=== PATIENT | female | born 1945 | race Caucasian/White ===

== ENCOUNTER 2022-06-02 05:51 | Inpatient (IN) | payer MEDICARE, SELFPAY ==
[2022-06-02] VITALS (213 sets, daily range): BP systolic 58–134; BP diastolic 21–91; PULSE 47–188; RESP 11–41; TEMP 36.9–37.7; O2SAT 92–99
--- NOTE | 2022-06-02 | DI.US_ITS ---
APPROVED REPORT EXAM: Comprehensive 2D, Doppler, and color-flow Echocardiogram Patient Location: In-Patient Room/Bed: 220 [employer] Tech: Angi Jacob RDCS (AE) Indications: A Fib with RVR, New onset Other Information Study Quality: Fair. Technically limited study due to body habitus, inability to position patient exa m done bedside supine. Conclusion Normal left ventricular wall thickness and chamber size. Estimated ejection fraction is 55%. Wall m otion appears normal Normal right ventricular size and systolic function Both atria are mildly dilated There are no structural valvular abnormalities Trace mitral regurgitation Trace to mild tricuspid regurgitation. Estimated right ventricular systolic pressure is 26 mmHg Patient was in atrial fibrillation with an uncontrolled ventricular response throughout, significant [id number] variation Wall motion Left Ventricle The left ventricle is normal size. The left ventricular systolic function is normal. The left ventric ular ejection fraction is within the normal range. There is normal left ventricular wall thickness. T here is normal LV segmental wall motion. There is no ventricular septal defect visualized. LVEF is 55 %. Right Ventricle Right ventricle is grossly normal in size. Right ventricular systolic function is grossly normal. The RVSP is 26.1mmHg. Atria Left atrium is mildly dilated. Right atrium is mildly dilated. The interatrial septum is intact with no evidence for an atrial septal defect. Aortic Valve The aortic valve is normal in structure. Aortic valve is trileaflet. There is no aortic valvular sten osis. No aortic regurgitation is present. Mitral Valve The mitral valve is normal in structure. No evidence of mitral valve stenosis. Trace mitral regurgita tion. Tricuspid Valve The tricuspid valve is normal in structure. There is no tricuspid valve stenosis. Mild to moderate t ricuspid regurgitation. Pulmonic Valve The pulmonary valve is normal in structure. There is no pulmonic valvular stenosis. There is no pulm onic valvular regurgitation. Great Vessels The aortic root is normal in size. Ascending aorta is not well visualized. Aortic arch is normal in c aliber. The IVC collapses <50% with inspiration. Pericardium There is no pericardial effusion. 2D Dimensions IVSD d PLAX 0.89 cm F: 0.6-1.0 LV Vol A2C d MOD 81.1 mL LVPW d PLAX 0.89 cm F: 0.6 - 1.0 LV Vol A4C d MOD 79.5 mL LVID d PLAX 4.37 cm F: 3.8 - 5.2 LA vol/ BSA A2C s A-L 33.2 mL/m2 LVDs 3.10 cm F: 2.2 - 3.5 LA vol/ BSA A4C s A-L 40.6 mL/m2 Ao Root d 3.19 cm F: 2.7 - 3.3 LA Vol/ BSA Biplane s A-L 37.8 mL/m2 RA Area A4C 13.60 cm2 LA Area A4C s MOD 22.93 cm2 RA Vol/ BSA A4C s A-L 18.0 mL/m2 LA Area A2C s MOD 21.34 cm2 LV EF Teichholz 55.0 % LV EF A4C MOD 51.4 % LVEF (Greer's) 53.92 % F: 54 - 74 LV EF A2C MOD 55.5 % LV Volume 62.68 mL F: 46 - 106 LV EF Biplane MOD 53.9 % LV Volume Index 32.81 mL/m2 F: 29 - 61 SV 44.34 mL LV Vol Biplane MOD 82.2 mL SV Index 23.25 mL/m2 FS 28.35 % M-Mode TAPSE 1.57 cm (M/F) >1.7 LV Diastology MV E' medial 0.099 (>0.07 m/s) MV E Vmax 0.80 (0.4-1.3 m/s) LV E/e MED 8.05 (<14) MV E' lateral 0.114 (>0.1 m/s) LV E/e LAT 6.95 (<14) MV E/E' medial 8.05 MV E/E' lateral 6.95 Aortic Valve LVOT Area 2.84 cm2 AoV Area Vmax 2.34 cm2 LVOT Vmax 0.97 m/s AoV Area/ BSA (Vmax) 1.23 cm2/m2 LVOT Mean Ash. 0.60 m/s MARLEY Mean Ash. 2.12 cm2 LVOT Peak Grad 3.8 mmHg MARLEY Mean Ash. Index 1.11 cm2/m2 LVOT Mean Grad 1.8 mmHg LVOT VTI 0.167 m LVOT Diam s 1.90 cm AoV Vmax 1.18 m/s Velocity Ratio 0.82 AoV Mean Ash. 0.81 m/s AoV Peak Grad 5.6 mmHg LVOT SV 47.41 mL AoV Mean Grad 3.0 mmHg AoV VTI 0.184 m AoV Area VTI 2.58 cm2 AoV Area/ BSA (VTI) 1.35 cm/m2 Mitral Valve MV DT 143 (160-240 msec) MV PHT 41 msec MV Area PHT 5.32 cm2 MV VTI 0.171 m MV Area VTI 2.76 (4.0-6.0 cm2) Pulmonary Valve PV Vmax 0.81 (0.5-1.5 m/s) RVOT Peak Gr. 1.19 mmHg PV Peak Grad 2.6 mmHg RVOT Mean Gr. 0.55 mmHg PV Mean Grad 1.4 mmHg RVOT VTI 0.092 m PV VTI 0.114 m RVOT Vmax 0.54 m/s Tricuspid Valve TR Peak Grad 18.0 mmHg TR Vmax 2.13 m/s RA Pressure 8.00 mmHg RVSP (TR) 26.1 mmHg
--- NOTE | 2022-06-02 05:45 | RT.EKG_ITS ---
APPROVED REPORT Exam: Resting ECG Reason for Exam: chest pain Patient Location: E HR:173 bpm ECG Measurements Heart Rate [address] 119 P -11 QRSd 147 QRS 210 QT 320 T -3 QTc 542 Conclusion Extreme tachycardia with wide complex, no further rhythm analysis attempted. Wide complex in V1, narrow complex remaider of leads. Irregular. ST depression inferior/lateral leads . No STEMI. I have reviewed and interpreted ECG and agree with software generated interpretation.
--- NOTE | 2022-06-02 05:59 | ED.GENADUL_ITS ---
Discharge Plan Discharge Details Chief Complaint: Palpitatns Primary Care Provider: Tova Cuello ED Provider: Everardo Brunner Home Meds and New Rx's Prescriptions: No Action rosuvastatin [Crestor] 20 mg Tablet 20 mg 1XD omeprazole 20 mg Capsule,Delayed Release(Dr/Ec) 20 mg PO DAILY Medical Decision Making 0610 -- 76-year-old female with history of hyperlipidemia presents for palpitati ons and dizziness since 3 AM. Heart rate 150s to 180s, wide-complex, irregular. Patient is awake and alert and talking and appears in no acute distress. Her blood pressure is stable at 132/71. She has normal oxygen saturation and appears nontoxic. [facility] cardiology paged. Patient attached to ZOLL, pads placed. Screening labs obtained. We will give a dose of amiodarone IV. 0630 --heart rate improved to as low as 110s after amiodarone. Blood pressure briefly hypotensive but then improved. Patient remained awake and alert, laughing and joking at times. Repeat EKG read as atrial flutter but appears potentially more consistent with A-fib, irregular, no P waves but no flutter waves. Case discussed with [facility] cardiology who agree may be atrial fibrillation and recommend 25 mg metoprolol tartrate. And give another dose of metoprolol if rate remains elevated. Recommend start anticoagulation if appropriate at some point. Recommend 325 aspirin loading dose. Pending labs and if elevated troponin, can treat with heparin. 0745 --labs reviewed. Potassium 3.4. Troponin and magnesium within normal limits. Chest x-ray no acute disease. Repeat EKG after metoprolol p.o. x1 notes a rate of 122, irregular, no P waves visible, wide complex in V1, remainder of leads narrow complex, no STEMI. Heart rate had remained into the 110s to 120s, will give another dose of metopro lol 25 p.o. We will page [facility] cardiology for additional recommendations. Patient remains awake and alert. Case endorsed to Dr. Brunner to follow-up with [facility] cardiology regarding recommendations. HR 100s. BP 98/65. Medical Records Medical records reviewed: Yes I reviewed the patient's medical records. Imaging Data Radiologic Study: Radiologist's impression: XR Chest Exam date and time: 06/02/2022 6:23 AM Age: 76 years old Clinical indication: Prior surgery; Surgery date: 6+ months; Surgery type: L shoulder surgery; Patient HX: Dizziness, tachycardia, R/O acute disease TECHNIQUE: Imaging protocol: Radiologic exam of the chest. Views: 1 view. COMPARISON: No relevant prior studies available. FINDINGS: Limitations: Two defibrillator pads and multiple cardiac leads project over the chest, partially obscuring the underlying lungs. Lungs: The lungs are clear and well aerated bilaterally. There is no consolidation, infiltrate, or pulmonary edema. The pulmonary vasculature is normal in caliber. Pleural spaces: Unremarkable. No pleural effusion or pneumothorax. Heart/Mediastinum: Heart size is normal. The thoracic aorta is tortuous, with atherosclerotic mural calcification of the aortic arch. The rob are not enlarged. Bones/joints: Degenerative changes. Left total shoulder arthroplasty. No acute osseous abnormality. IMPRESSION: No acute cardiopulmonary abnormality. Lab Data Lab results reviewed: Yes I reviewed the patient's lab results. Labs: Laboratory Tests Range/Units 06/02/22 06/02/22 06:00 06:00 WBC (4.4-10.8) 10^3/uL 5.89 RBC (3.93-5.22) 10^6/uL 4.16 Hgb (11.2-15.7) g/dL 12.9 Hct (36.0-46.0) % 39.2 MCV (80-95) fL 94 MCH (27.0-33.0) pg 31.0 MCHC (32.0-36.0) % 32.9 RDW (11.7-14.6) % 12.8 Plt Count (130-400) 10^3/uL 242 MPV (8.0-11.0) fL 10.3 Immature Gran % 0.3 Neutrophils % 59.7 Lymphocytes % 26.8 Monocytes % 10.0 Eosinophils % 2.7 Basophils % 0.5 Nucleated RBC % (0.0-0.3) % 0.0 Absolute Neutrophils (1.2-6.7) 10^3/uL 3.51 Absolute Lymphocytes (1.2-3.4) 10^3/uL 1.58 Absolute Monocytes (0.1-0.8) 10^3/uL 0.59 Absolute Eosinophils (0.0-0.7) 10^3/uL 0.16 Absolute Basophils (0.0-0.2) 10^3/uL 0.03 Sodium (136-145) mmol/L 144 Potassium (3.5-5.1) mmol/L 3.4 L Chloride (98-107) mmol/L 106 Carbon Dioxide (21.0-32.0) mmol/L 25.5 Anion Gap (3-11) mmol/L 12.5 H BUN (7-18) mg/dL 13 Creatinine (0.55-1.02) mg/dL 0.9 Est GFR (CKD-EPI 2020) (mL/min/1.73m2) 65.44 Glucose (74-106) mg/dL 109 H Calcium (8.5-10.1) mg/dL 9.2 Magnesium (1.8-2.4) mg/dL 1.9 Total Bilirubin (0.2-1.0) mg/dL 0.6 AST (15-37) U/L 25 ALT (14-59) U/L 21 Alkaline Phosphatase (46-116) U/L 71 Troponin I (<or=60) ng/L < 50 Total Protein (6.4-8.2) g/dL 7.0 Albumin (3.4-5.0) g/dL 3.7 ECG Data Attestation: I personally reviewed and interpreted this ECG (s) as follows: Interpretation: #1 -- rate of 173, irregular, wide complex in V1 and V2, narrow complex in remainder of leads, ST depressions throughout. No STEMI. #2 -- Rate of 119, irregular, wide-complex in V1, narrow complex remainder of leads, ST depression noted in anterior lateral leads, no STEMI. #3 -- Rate of 122, irregular, no P waves visible, wide complex in V1, remainder of leads narrow complex, no STEMI. May be A-fib. HPI General Mode of arrival: ambulatory . Date/Time Provider Initiated Documentation: 06/02/22 05:52 . Limitations to Documentation: no limitations . Information obtained by: patient . HPI Narrative: Pt is a 76yo F with a history of hyperlipidemia who presents to the ED with a complaint of palpitations since 3 AM. Patient states she is visiting from [facility] and staying with her son and was sleeping when around 3 AM the cat jumped on the bed and awoke her and she became nervous because she is allergic to cats. She states shortly after this she felt rapid heart rate and dizziness. She denies any chest pain or shortness of breath. She states she had several episodes of vomiting and diarrhea 4 nights ago that has since resolved and she has been eating normally and now has normal stools. She denies any new medications, alcohol or drug use. She states she drinks a few iced teas daily but otherwise denies any other caffeine use. She denies any history of an arrhythmia. Related Data Home Medications Medication Instructions Recorded Confirmed omeprazole 20 mg capsule,delayed 20 mg PO DAILY 06/02/22 06/02/22 release rosuvastatin 20 mg tablet (Crestor) 20 mg 1XD 06/02/22 06/02/22 Allergies Allergy/AdvReac Type Severity Reaction Status Date / Time iodine AdvReac Mild Other (See Unverified 06/02/22 06:14 Comment) General Stated Complaint: Palpitatns PETER: 3 Review of Systems All systems reviewed & are unremarkable except as noted in HPI and below Constitutional Constitutional: Reports as per HPI, Denies chills and Denies fever(s) Eyes Eyes: Denies blurry vision ENT Ears, Nose, Mouth, and Throat: Reports dizziness, Denies sore throat and Denies throat swelling Cardiovascular Cardiovascular: Denies chest pain, Reports palpitations and Denies dyspnea Respiratory Respiratory: Denies cough and Denies dyspnea Gastrointestinal Gastrointestinal: Denies abdominal pain, Denies diarrhea and Denies vomiting Genitourinary Genitourinary: Denies hematuria and Denies dysuria Musculoskeletal Musculoskeletal: Denies back pain and Denies numbness Integumentary/Breasts Skin/Breast: Denies lesions and Denies rash Neurologic Neurologic: Reports dizziness, Denies localized weakness and Denies numbness Endocrine Endocrine: Reports palpitations Allergic/Immunologic Allergic/Immunologic: Denies throat swelling [facility] Medical History (Updated 06/02/22 @ 06:16 by Elizabeth Gonzalez DO) Cervical cancer Hx of hyperlipidemia Surgical History (Updated 06/02/22 @ 06:16 by Elizabeth Gonzalez DO) H/O shoulder surgery History of hip replacement History of hysterectomy Social History Smoking/Tobacco Use Status: Never Smoking risk assessment performed?: Yes Alcohol Intake: never Drug use: Never Substance use type: does not use Exam Const General: cooperative and no acute distress Orientation: alert, awake and oriented x3 HENMT Head: normal to inspection Face and sinus: normal facial exam Eyes General: appearance normal, both eyes and all related structures Pupils: PERRL EOM: EOM intact bilaterally Neck Neck: normal visual inspection and No submandibular swelling Lymphatic: no lymphadenopathy noted Chest Chest: normal inspection of the chest and no tenderness Resp Effort & Inspection: normal respiratory effort and able to speak in complete sentences Auscultation: clear to auscultation bilaterally Cardio Rate: tachycardic Rhythm: abnormal rhythm irregularly irregular GI Inspection: normal to inspection Palpation: soft, not firm, not rigid and nontender Auscultation: normal bowel sounds Back/Spine/Pelvis Thoracic/Lumbar Spine: thoracic and lumbar spine normal to inspection Pelvis: no pain with anterior-posterior compression Skin General skin exam: no rashes or lesions noted Neuro General: patient alert, patient awake and patient oriented x3 Cognition: normal cognition Speech: speech normal Motor: muscle tone normal throughout Sensory Exam: no sensory deficits noted Extrem General: normal to inspection, full ROM, capillary refill normal, no calf tenderness bilaterally and no edema Psych Appearance: grossly normal Mental Status: mental status grossly normal Speech and Movement: speech and movement normal Affect: normal affect Sign Out Sign Out Data: Sign Out Comment: Palpitations since 3 AM. Wide-complex arrhythmia on initial EKG, status post amiodarone IV x1 and metoprolol p.o. x 2. Rhythm now appearing more consistent with A-fib. Follow-up with [facility] cardiology regarding recommendations. Last updated by Elizabeth Gonzalez DO at 06/02/22 07:45
--- NOTE | 2022-06-02 06:00 | DI.RAD_ITS ---
Exam(s) XR PORTABLE CHEST AP EXAM: XR PORTABLE CHEST AP CLINICAL HISTORY: dizziness, tachycardia, r/o acute disease TECHNIQUE: 2D digital imaging was performed. COMPARISON: No exams were available for comparison FINDINGS: Exam limited by multiple overlying leads. LUNGS: Clear. No pleural abnormality seen. HEART: Normal size. AORTA: Normal diameter. Mildly tortuous. Calcification. BONES: Prosthesis left shoulder. Degenerative changes right shoulder and spine. Soft tissues: Unremarkable. IMPRESSION: No acute findings. DATA REPOSITORY: RADIATION DOSE DELIVERED:
[2022-06-02 06:23] LABS: Abs Immature Grans 0.02 10^3/uL (0.0-0.06); Absolute Basophil Count 0.03 10^3/uL (0.0-0.2); Absolute Eosinophil Count 0.16 10^3/uL (0.0-0.7); Absolute Lymphocyte Count 1.58 10^3/uL (1.2-3.4); Absolute Monocyte Count 0.59 10^3/uL (0.1-0.8); Absolute Neutrophil Count 3.51 10^3/uL (1.2-6.7); Basophils % 0.5; Eosinophils % 2.7; HCT 39.2 % (36.0-46.0); HGB 12.9 g/dL (11.2-15.7); Immature Grans % 0.3; Lymphocytes % 26.8; MCHC 32.9 % (32.0-36.0); MCV 94 fL (80-95); MPV 10.3 fL (8.0-11.0); Neutrophils % 59.7; Platelet Count 242 10^3/uL (130-400); RBC 4.16 10^6/uL (3.93-5.22); RDW 12.8 % (11.7-14.6); RDW-SD 44.1 fL; WBC 5.89 10^3/uL (4.4-10.8)
[2022-06-02] MEDS: Amiodarone 150 MG/3 ML VIAL IVP (06:25)
--- NOTE | 2022-06-02 06:30 | RT.EKG_ITS ---
APPROVED REPORT Exam: Resting ECG Reason for Exam: rapid heart rate Patient Location: E HR:119 bpm ECG Measurements Heart Rate 119 AXIS OH [id number] P [id number] QRSd 161 QRS -53 QT 378 T 6 QTc 541 Conclusion Atrial flutter with predominant 2:1 AV block...A-rate 246, multiple Ps Right bundle branch block...QRSd>120, terminal axis(90,270). Wide complex in V1. Narrow complex in remainder of leads. ST depression inferior/lateral leads. No P waves visible. Irregular. May be Afib.
[2022-06-02] MEDS: Normal Saline 1,000 ML 150 ML IV ×3 (06:31→20:29)
[2022-06-02 06:44] LABS: ALT 21 U/L (14-59); AST 25 U/L (15-37); Albumin 3.7 g/dL (3.4-5.0); Alkaline Phosphatase 71 U/L (46-116); Anion Gap 12.5 mmol/L (3-11); BUN 13 mg/dL (7-18); Bilirubin, Total 0.6 mg/dL (0.2-1.0); CO2 25.5 mmol/L (21.0-32.0); CREATININE 0.9 mg/dL (0.55-1.02); Calcium 9.2 mg/dL (8.5-10.1); Chloride 106 mmol/L (98-107); Estimated GFR 65.44 (mL/min/1.73m2); Glucose 109 mg/dL (74-106); Magnesium 1.9 mg/dL (1.8-2.4); Potassium 3.4 mmol/L (3.5-5.1); Sodium 144 mmol/L (136-145); Troponin I < 50 ng/L (<or=60)
[2022-06-02] MEDS: Metoprolol 25 MG TAB PO ×4 (06:47→18:54)
[2022-06-02] MEDS: Aspirin 325 MG TAB PO (06:47)
--- NOTE | 2022-06-02 07:15 | RT.EKG_ITS ---
APPROVED REPORT Exam: Resting ECG Reason for Exam: rapid heart rate Patient Location: E HR:122 bpm ECG Measurements Heart Rate 122 AXIS FL 137 P -8 QRSd 155 QRS -41 QT 371 T -7 QTc 513 Conclusion Sinus tachycardia with irregular rate...V-rate 90-174, variation>10% Right bundle branch block...QRSd>120, terminal axis(90,270). Wide complex V1. Narrow complex remainder of leads. No P waves visible. Irregular. May be Afib.
[2022-06-02] MEDS: Normal Saline 1,000 ML 1000 ML IV (07:16)
--- NOTE | 2022-06-02 07:18 | DI.VRAD_ITS ---
PROCEDURE INFORMATION: Exam: XR Chest Exam date and time: 06/02/2022 6:23 AM Age: 76 years old Clinical indication: Prior surgery; Surgery date: 6+ months; Surgery type: L shoulder surgery; Patient HX: Dizziness, tachycardia, R/O acute disease TECHNIQUE: Imaging protocol: Radiologic exam of the chest. Views: 1 view. COMPARISON: No relevant prior studies available. FINDINGS: Limitations: Two defibrillator pads and multiple cardiac leads project over the chest, partially obscuring the underlying lungs. Lungs: The lungs are clear and well aerated bilaterally. There is no consolidation, infiltrate, or pulmonary edema. The pulmonary vasculature is normal in caliber. Pleural spaces: Unremarkable. No pleural effusion or pneumothorax. Heart/Mediastinum: Heart size is normal. The thoracic aorta is tortuous, with atherosclerotic mural calcification of the aortic arch. The rob are not enlarged. Bones/joints: Degenerative changes. Left total shoulder arthroplasty. No acute osseous abnormality. IMPRESSION: No acute cardiopulmonary abnormality. Dictated and Authenticated by: Jodee Madden MD. Ordering:IGNACIO Johnson MD
--- NOTE | 2022-06-02 08:33 | ED.PROG_ITS ---
Date of service: 06/02/22 Time of Service: 08:33 Medical Decision Making Care was signed out by Dr. Gonzalez, please see her documentation regarding initial ED presentation course. Plan at signout was to follow-up on recommendations from cardiology. Attempting to obtain outside hospital records including old EKG. Labs reviewed and mild-hypokalemia noted. Potassium 3.4. I will give potassium 20 meq orally. Patient was reassessed and heart rate now in the 100-120 bpm. Blood pressure 92/72 with a MAP of 76. Patient has received 1 L fluid bolus and is currently receiving normal saline infusion. She has been given amiodarone 150 mg bolus and metoprolol tartrate 50 mg by mouth. I spoke with cardiology at [facility] to update them as to course and request recommendations. Cardiology recommends continuing to monitor, obtain echocardiogram, consider metoprolol succinate 25 mg versus digoxin for ongoing outpatient management. -- I spoke with hospitalist, discussed ED presentation course, he will admit the patient. Care transition at time of admission. Lab Data Lab results reviewed: Yes I reviewed the patient's lab results. Labs: Laboratory Tests Range/Units 06/02/22 06/02/22 06:00 06:00 WBC (4.4-10.8) 10^3/uL 5.89 RBC (3.93-5.22) 10^6/uL 4.16 Hgb (11.2-15.7) g/dL 12.9 Hct (36.0-46.0) % 39.2 MCV (80-95) fL 94 MCH (27.0-33.0) pg 31.0 MCHC (32.0-36.0) % 32.9 RDW (11.7-14.6) % 12.8 Plt Count (130-400) 10^3/uL 242 MPV (8.0-11.0) fL 10.3 Immature Gran % 0.3 Neutrophils % 59.7 Lymphocytes % 26.8 Monocytes % 10.0 Eosinophils % 2.7 Basophils % 0.5 Nucleated RBC % (0.0-0.3) % 0.0 Absolute Neutrophils (1.2-6.7) 10^3/uL 3.51 Absolute Lymphocytes (1.2-3.4) 10^3/uL 1.58 Absolute Monocytes (0.1-0.8) 10^3/uL 0.59 Absolute Eosinophils (0.0-0.7) 10^3/uL 0.16 Absolute Basophils (0.0-0.2) 10^3/uL 0.03 Sodium (136-145) mmol/L 144 Potassium (3.5-5.1) mmol/L 3.4 L Chloride (98-107) mmol/L 106 Carbon Dioxide (21.0-32.0) mmol/L 25.5 Anion Gap (3-11) mmol/L 12.5 H BUN (7-18) mg/dL 13 Creatinine (0.55-1.02) mg/dL 0.9 Est GFR (CKD-EPI 2020) (mL/min/1.73m2) 65.44 Glucose (74-106) mg/dL 109 H Calcium (8.5-10.1) mg/dL 9.2 Magnesium (1.8-2.4) mg/dL 1.9 Total Bilirubin (0.2-1.0) mg/dL 0.6 AST (15-37) U/L 25 ALT (14-59) U/L 21 Alkaline Phosphatase (46-116) U/L 71 Troponin I (<or=60) ng/L < 50 Total Protein (6.4-8.2) g/dL 7.0 Albumin (3.4-5.0) g/dL 3.7 Sign Out Sign Out Data: Sign Out Comment: Palpitations since 3 AM. Wide-complex arrhythmia on initial EKG, status post amiodarone IV x1 and metoprolol p.o. x 2. Rhythm now appearing more consistent with A-fib. Follow-up with [facility] cardiology regarding recommendations. Last updated by Elizabeth Gonzalez DO at 06/02/22 07:45 Discharge Plan Disposition Patient Disposition: Admit to [facility] Condition: Serious Discharge Details Clinical Impression: Atrial fibrillation with RVR, Acute hypokalemia Admit Date/Time: 06/02/22 09:51 Admit Provider: Roque Melendrez Attending Provider: Roque Melendrez Primary Care Provider: Tova Cuello ED Provider: Everardo Brunner Discharge Data Discharge Date/Time-TO BE ENTERED AT DEPARTURE: 06/02/22 11:54
[2022-06-02] MEDS: Potassium Chloride 20 MEQ TABCR PO ×3 (09:21→21:31)
[2022-06-02 10:15] LABS: Source Nasal/Nares
[2022-06-02 10:56] LABS: COVID-19 PCR Negative (Negative)
[2022-06-02] MEDS: Apixaban 5 MG TAB PO ×2 (13:37→20:29)
--- NOTE | 2022-06-02 15:17 | W.CARDCONSUL ---
Date of service: 06/02/22 Time of Service: 15:18 Assessment and Plan Assessment and plan (1) Atrial fibrillation with RVR: Status: Acute Assessment and plan: Patient has atrial fibrillation. She has been appropriately started on anticoagulation with Eliquis. I would recommend continued efforts at rate control such as metoprolol tartrate 25 mg every 6 hours. This could be gradually uptitrated based on heart rate and blood pressure if necessary. I think over time heart rate will get better controlled. The patient wants to know if she can go home tomorrow and I think that depending on how she does overnight and whether a discharge regimen can be determined will affect that. If possible changing to long-acting metoprolol at discharge would be desirable. She should have referral to cardiology when she goes home to [place] for further care. Amiodarone should be avoided as the patient has not been chronically anticoagulated. History of Present Illness History of Present Illness Chief Complaint: Rapid heartbeat Narrative: This 76-year-old woman presented to the emergency room earlier today because of an elevated heart rate, noted to be as high as 150 on her Apple Watch. She could feel heart racing. She did not experience any shortness of breath chest discomfort dizziness or lightheadedness. In the emergency room she was found to have atrial fibrillation with a rapid rate. EKG showed a right bundle branch block. She has been treated with low doses of beta-blockers and also 1 dose of amiodarone with some degree of slowing of her heart rate. She also has been started on Eliquis. Currently the patient is in ICU and is not expressing any cardiac symptoms. heart rate is around 120. The patient does not have any past history of atrial fibrillation. Overall she is healthy. She takes Crestor for cholesterol and reports that she had a coronary artery calcium score which was elevated, result not specifically known. Her primary care provider ordered this test and recommended healthy diet and lifestyle choices. She has had stress testing in the past reportedly unremarkable. An echocardiogram was done today. Within the limits of the study her LV function appears normal. She has no significant valvular disease. Both atria are mildly dilated Review of Systems Cardiovascular Cardiovascular: Reports as per HPI, Denies chest pain, Reports rapid heart rate, Denies lightheadedness, Reports palpitations and Denies dyspnea Respiratory Respiratory: Denies dyspnea Endocrine Endocrine: Reports palpitations PFSH All Active Problems (Updated 06/02/22 @ 08:37 by Everardo Brunner MD) Atrial fibrillation with RVR (Acute) Acute hypokalemia (Acute) Medical History (Updated 06/02/22 @ 08:37 by Everardo Brunner MD) Cervical cancer Hx of hyperlipidemia Surgical History (Updated 06/02/22 @ 06:16 by Elizabeth Gonzalez DO) H/O shoulder surgery History of hip replacement History of hysterectomy Social History Smoking/Tobacco Use Status: Never Smoking risk assessment performed?: Yes Alcohol Intake: never Drug use: Never Substance use type: does not use Exam Const Other: Well-developed well-nourished looks younger than stated age no acute distress Neck Other: No neck vein distention no V waves normal carotid upstrokes no bruits Resp Auscultation: clear to auscultation bilaterally Cardio Other: Irregularly irregular mildly tachycardic brief systolic ejection quality murmur Skin Other: Warm and dry Extrem Other: No peripheral edema, intact distal pulses Results Last Vital Signs Temp 37.1 C 06/02/22 12:10 Pulse 62 06/02/22 14:46 Resp 19 06/02/22 14:46 BP 101/63 06/02/22 14:46 Pulse Ox 95 06/02/22 14:31 Labs 06/02/22 06:00 06/02/22 06:00 Labs: Laboratory Results - last 24 hr 06/02/22 06/02/22 06/02/22 06:00 06:00 10:10 WBC 5.89 RBC 4.16 Hgb 12.9 Hct 39.2 MCV 94 MCH 31.0 MCHC 32.9 RDW 12.8 Plt Count 242 MPV 10.3 Immature Gran % 0.3 Neutrophils % 59.7 Lymphocytes % 26.8 Monocytes % 10.0 Eosinophils % 2.7 Basophils % 0.5 Nucleated RBC % 0.0 Absolute Neutrophils 3.51 Absolute Lymphocytes 1.58 Absolute Monocytes 0.59 Absolute Eosinophils 0.16 Absolute Basophils 0.03 Sodium 144 Potassium 3.4 L Chloride 106 Carbon Dioxide 25.5 Anion Gap 12.5 H BUN 13 Creatinine 0.9 Est GFR (CKD-EPI 2020) 65.44 Glucose 109 H Calcium 9.2 Magnesium 1.9 Total Bilirubin 0.6 AST 25 ALT 21 Alkaline Phosphatase 71 Troponin I < 50 Total Protein 7.0 Albumin 3.7 COVID-19 Source Nasal/Nares SARS-CoV-2 (PCR) Negative
--- NOTE | 2022-06-02 17:27 | W.PM.HP.N ---
Date of service: 06/02/22 Time of Service: 17:29 Assessment and Plan Assessment and plan (1) Atrial fibrillation with RVR: Status: Acute Assessment and plan: Given a dose of IV amiodarone and 2 doses of oral metoprolol 25mg in the ED. Cardiology consulted appreciated. Recommends metoprolol 25mg po Q6H. Trigger may have been N/V/diarrhea and resultant hypokalemia. Telemetry. Eliquis for anticoagulation. Echocardiogram: Study Quality: Fair. Technically limited study due to body habitus, inability to position patient exam done bedside supine. Conclusion Normal left ventricular wall thickness and chamber size.? Estimated ejection fraction is 55%.? Wall motion appears normal Normal right ventricular size and systolic function Both atria are mildly dilated There are no structural valvular abnormalities Trace mitral regurgitation Trace to mild tricuspid regurgitation.? Estimated right ventricular systolic pressure is 26 mmHg Patient was in atrial fibrillation with an uncontrolled ventricular response throughout, significant [id number] variation (2) Acute hypokalemia: Status: Acute Assessment and plan: Repleting and monitoring. (3) Hx of hyperlipidemia: Assessment and plan: Continue statin. History of Present Illness History of Present Illness Chief Complaint: Rapid heart rate Narrative: This is a 76 yo female with a PMH of HLD who presented to the ED with a c/o a rapid heart rate. She noted this at 3PM. She noted the rapid rate and felt dizzy. Her iWatch showed a HR in the 140's. She related that this occurred coincidentally when a cat jumped onto her bed, woke and startled her. No CP or shortness of air. She also described N/V/diarrhea appx 4 nights ago that she relates to eating a hamburger and turkmen fries at a restaurant. That has since resolved. Caffeine intake consists of several iced tea drinks daily. No known prior arrhythmias. EKG showed a HR of 173. Irregular and wide complex V1 and V2. ST depressions throughout. Repeat EKG with improved HR of 119. Review of Systems All systems reviewed & are unremarkable except as noted in HPI and below PFSH All Active Problems (Updated 06/02/22 @ 08:37 by Everardo Brunner MD) Atrial fibrillation with RVR (Acute) Acute hypokalemia (Acute) Medical History (Updated 06/02/22 @ 08:37 by Everardo Brunner MD) Cervical cancer Hx of hyperlipidemia Surgical History (Updated 06/02/22 @ 06:16 by Elizabeth Gonzalez DO) H/O shoulder surgery History of hip replacement History of hysterectomy Social History Smoking/Tobacco Use Status: Never Smoking risk assessment performed?: Yes Alcohol Intake: never Drug use: Never Substance use type: does not use Meds Allergies and Home Medications Allergies Allergy/AdvReac Type Severity Reaction Status Date / Time iodine AdvReac Mild Other (See Unverified 06/02/22 06:14 Comment) Home Medications Medication Instructions Recorded Confirmed Type omeprazole 20 mg capsule,delayed 20 mg PO DAILY 06/02/22 06/02/22 History release rosuvastatin 20 mg tablet (Crestor) 20 mg 1XD 06/02/22 06/02/22 History Exam Narrative Exam Narrative: 76 yo female that appears younger than stated age. Conversant. Const General: cooperative and no acute distress Orientation: alert, awake and oriented x3 HENMT Head: normal to inspection and normocephalic Face and sinus: normal facial exam Eyes General: appearance normal, both eyes and all related structures Sclera: sclerae normal Neck Neck: full ROM and no JVD Resp Effort & Inspection: normal respiratory effort and able to speak in complete sentences Auscultation: clear to auscultation bilaterally Cardio Rate: tachycardic Rhythm: abnormal rhythm irregularly irregular GI Inspection: normal to inspection Palpation: soft, rigid and nontender Auscultation: normal bowel sounds Skin General skin exam: no rashes or lesions noted Neuro General: no focal motor deficits Cranial Nerves: facial strength normal Cognition: normal cognition Speech: speech normal Extrem General: normal to inspection, no pedal edema and no calf tenderness Psych Appearance: grossly normal Mental Status: mental status grossly normal Speech and Movement: speech and movement normal Affect: normal affect Results Labs 06/02/22 06:00 06/02/22 06:00 Labs: Laboratory Results - last 24 hr 06/02/22 06/02/22 06/02/22 06:00 06:00 10:10 WBC 5.89 RBC 4.16 Hgb 12.9 Hct 39.2 MCV 94 MCH 31.0 MCHC 32.9 RDW 12.8 Plt Count 242 MPV 10.3 Immature Gran % 0.3 Neutrophils % 59.7 Lymphocytes % 26.8 Monocytes % 10.0 Eosinophils % 2.7 Basophils % 0.5 Nucleated RBC % 0.0 Absolute Neutrophils 3.51 Absolute Lymphocytes 1.58 Absolute Monocytes 0.59 Absolute Eosinophils 0.16 Absolute Basophils 0.03 Sodium 144 Potassium 3.4 L Chloride 106 Carbon Dioxide 25.5 Anion Gap 12.5 H BUN 13 Creatinine 0.9 Est GFR (CKD-EPI 2020) 65.44 Glucose 109 H Calcium 9.2 Magnesium 1.9 Total Bilirubin 0.6 AST 25 ALT 21 Alkaline Phosphatase 71 Troponin I < 50 Total Protein 7.0 Albumin 3.7 COVID-19 Source Nasal/Nares SARS-CoV-2 (PCR) Negative Last Vital Signs Temp 37.7 C H 06/02/22 15:59 Pulse 124 H 06/02/22 15:59 Resp 24 06/02/22 15:59 BP 95/59 L 06/02/22 15:59 Pulse Ox 96 06/02/22 15:59 Time Spent Time spent with Patient: 40-54 minutes Time was spent: preparing to see the patient(eg.review tests), obtaining and/or reviewing separately otained hiistory, ordering medications,tests, procedures, referring, communicating with other health healthcare project manager, indepentently interpreting results and counseling the patient
[2022-06-02] MEDS: Melatonin 3 MG TAB 6 MG PO (21:47)
[2022-06-03] VITALS (99 sets, daily range): BP systolic 66–156; BP diastolic 36–97; PULSE 50–134; RESP 13–34; TEMP 36.1–37.3; O2SAT 93–98
[2022-06-03] MEDS: Normal Saline 250 ML IV (06:02)
[2022-06-03 06:21] LABS: Anion Gap 8.4 mmol/L (3-11); BUN 12 mg/dL (7-18); CO2 23.6 mmol/L (21.0-32.0); CREATININE 0.9 mg/dL (0.55-1.02); Calcium 8.3 mg/dL (8.5-10.1); Chloride 114 mmol/L (98-107); Estimated GFR 65.44 (mL/min/1.73m2); Glucose 94 mg/dL (74-106); Potassium 4.2 mmol/L (3.5-5.1); Sodium 146 mmol/L (136-145)
--- NOTE | 2022-06-03 08:41 | INITIAL_ITS ---
- If Service Date Differs Date of service: 06/03/22 Time of Service: 08:41 Care Management Initial Assess REASON FOR HOSPITALIZATION:: Atrial fibrillation with RVR PAST MEDICAL HISTORY/PAST SURGICAL HISTORY:: All Active Problems (Updated 06/02/22 @ 08:37 by Everardo Brunner MD). Atrial fibrillation with RVR (Acute). Acute hypokalemia (Acute). Medical History (Updated 06/02/22 @ 08:37 by Everardo Brunner MD). Cervical cancer. Hx of hyperlipidemia. Surgical History (Updated 06/02/22 @ 06:16 by Elizabeth Gonzalez DO). H/O shoulder surgery. History of hip replacement. History of hysterectomy PREVIOUS FUNCTIONAL STATUS/SOCIAL/FAMILY SUPPORTS:: Ivette lives alone in [place] She is in the area visiting her son Yvon who lives in [facility]. Ivette has 2 sons and 2 step daughters, non live local to [place]. Ivette drives and is active and independent at baseline. She formerly worked in [employer] and is now retired. CURRENT FUNCTIONAL STATUS:: Ivette was lying in bed when CM met with her. She is awake and easily engages in conversation. Per pt, following discharge she is planning to stay with her son Yvon in [facility] for at least a day, then she will drive herself back to [place]. Ivette has no concerns at this time. CM will follow. ADVANCE DIRECTIVES:: CM located in [place] [place]. Co-Agents are Yvon Carnes and Angela Alexandre Has patient been provided with info about the portal/API?: Yes Did the patient sign up for the portal?: No CODE STATUS:: Full Code INSURANCE COVERAGE / FINANCIAL ISSUES:: AARP. Medicare CURRENT HOME/COMMUNITY SERVICES/EQUIPMENT:: None PRIMARY CARE PHYSICIAN:: Tova Carrillo POTENTIAL DISCHARGE NEEDS:: Follow up appointment with PCP PATIENT/FAMILY EDUCATION NEEDS:: Review discharge instructions, limitations, medications and plan to follow up with community providers. Discuss ask me three. TRANSPORTATION:: via private vehicle with son. PLAN:: Ivette requires close monitoring and treatment in the ICU. Anticipate, she will discharge home with no H services, when medically ready per provider. She lives in [place] and will follow up with her community providers and discharge plan of care as prescribed.
[2022-06-03] MEDS: Omeprazole 20 MG CAPCR PO (09:01)
[2022-06-03] MEDS: Apixaban 5 MG TAB PO ×2 (09:01→21:11)
[2022-06-03] MEDS: Metoprolol 12.5 MG TAB PO (09:01)
--- NOTE | 2022-06-03 12:25 | W.PM.PROGNOT ---
Date of Service Date of service: 06/03/22 Time of Service: 12:25 Assessment and Plan Assessment and plan (1) Atrial fibrillation with RVR: Status: Acute Assessment and plan: Given a dose of IV amiodarone and 2 doses of oral metoprolol 25mg in the ED. HR trending downward. Cardiology consulted appreciated. Recommends metoprolol 25mg po Q6H. BP was not tolerant of this dose so decreased metoprolol to 12.5mg po Q6H Trigger may have been N/V/diarrhea and resultant hypokalemia. Telemetry. Eliquis for anticoagulation. Echocardiogram: Study Quality: Fair. Technically limited study due to body habitus, inability to position patient exam done bedside supine. Conclusion Normal left ventricular wall thickness and chamber size.? Estimated ejection fraction is 55%.? Wall motion appears normal Normal right ventricular size and systolic function Both atria are mildly dilated There are no structural valvular abnormalities Trace mitral regurgitation Trace to mild tricuspid regurgitation.? Estimated right ventricular systolic pressure is 26 mmHg Patient was in atrial fibrillation with an uncontrolled ventricular response throughout, significant [id number] variation (2) Acute hypokalemia: Status: Acute Assessment and plan: Repleting and monitoring. (3) Hx of hyperlipidemia: Assessment and plan: Continue statin. Subjective Subjective Patient reports: no new complaints, feels better and afebrile; denies nausea, vomiting or shortness of breath Exam Narrative Exam Narrative: 76 yo female that appears younger than stated age. Conversant. Lying supine. Const General: cooperative and no acute distress Orientation: alert, awake and oriented x3 HENMT Head: normal to inspection and normocephalic Face and sinus: normal facial exam Eyes General: appearance normal, both eyes and all related structures Sclera: sclerae normal Neck Neck: full ROM and no JVD Resp Effort & Inspection: normal respiratory effort and able to speak in complete sentences Auscultation: clear to auscultation bilaterally Cardio Rate: tachycardic Rhythm: abnormal rhythm irregularly irregular GI Inspection: normal to inspection Palpation: soft, rigid and nontender Auscultation: normal bowel sounds Skin General skin exam: no rashes or lesions noted Neuro General: no focal motor deficits Cranial Nerves: facial strength normal Cognition: normal cognition Speech: speech normal Extrem General: normal to inspection, no pedal edema and no calf tenderness Psych Appearance: grossly normal Mental Status: mental status grossly normal Speech and Movement: speech and movement normal Affect: normal affect Objective Last Vital Signs Temp 37.3 C 06/03/22 08:36 Pulse 93 H 06/03/22 10:05 Resp 22 06/03/22 10:05 BP 95/58 L 06/03/22 10:05 Pulse Ox 95 06/03/22 10:05 Laboratory Results - last 24 hr 06/03/22 05:21 Sodium 146 H Potassium 4.2 Chloride 114 H Carbon Dioxide 23.6 Anion Gap 8.4 BUN 12 Creatinine 0.9 Est GFR (CKD-EPI 2020) 65.44 Glucose 94 Calcium 8.3 L Time Spent with Patient Time Spent with Patient: 25-34 minutes Time was spent: preparing to see the patient(eg.review tests), ordering medications,tests, procedures and counseling the patient
--- NOTE | 2022-06-03 14:19 | PHA.REVIEW2 ---
Pharmacy Admission Review - Admission Clinical Review (Last Updated 06/02/22 @ 06:16 by Elizabeth Gonzalez DO) Atrial fibrillation with RVR (Acute) Acute hypokalemia (Acute) iodine Adverse Reaction (Mild, Unverified 06/02/22 06:14) Other (See Comment) Resuscitation Status Full Code Height 5 ft 8 in Weight 88.6 kg - Renal Dosing Renal Dosing: BUN 12 mg/dL (7-18) 06/03/22 05:21 Creatinine 0.9 mg/dL (0.55-1.02) 06/03/22 05:21 Medications needing adjustments: Reviewed (Crcl ~54 mL/min current meds okay) - Anticoagulation Anticoagulation: Hgb 12.9 g/dL (11.2-15.7) 06/02/22 06:00 Hct 39.2 % (36.0-46.0) 06/02/22 06:00 Plt Count 242 10^3/uL (130-400) 06/02/22 06:00 Creatinine 0.9 mg/dL (0.55-1.02) 06/03/22 05:21 DVT Prophylaxis: N/A Therapeutic Anticoagulation: Reviewed Medications: Apixaban - Opiate Usage Evaluate Pain Scale/Pains Meds: N/A - Relevant Labs Sodium 146 mmol/L (136-145) H 06/03/22 05:21 Potassium 4.2 mmol/L (3.5-5.1) 06/03/22 05:21 Chloride 114 mmol/L (98-107) H 06/03/22 05:21 Magnesium 1.9 mg/dL (1.8-2.4) 06/02/22 06:00 Electrolytes, C-Reactive P, ESR: Reviewed (K+ improved since yesterday, PO K+ ordered) - DM Control DM Control: Glucose 94 mg/dL (74-106) 06/03/22 05:21 DM Control: Reviewed (No DM noted in medical history, no A1c on file) Insulin Dosing, Diabetic Medication: N/A - Cardiac Review Cardiac Review: Troponin I < 50 ng/L (<or=60) 06/02/22 06:00 BP, HR, EF%: Reviewed (BP has been low most of admission so far and HR has been up and down) - Qtc Review QTc: Reviewed (QTc 542, 541, and 513 on EKGs done yesterday) - IV to PO Switch IV Medications: Reviewed - Home Meds Home Med List reviewed: Intervened (will ask provider about rosuvastatin since progress note mentions continuing this med) Relevent Home Meds Not ordered & why?: rosuvastatin - Current meds Current Medication Order Review: Intervened (adjusted timing of omperazole based on the medical transcription time policy) - Comments Comments/Follow Ups: Watch BP, HR, K+, labs and for med changes.
--- NOTE | 2022-06-03 15:17 | CHAPLAIN ---
Ivette was resting in bed when I visited. She was showing her nurse, Xin Jason RN, photos of her [facility]. Ivette explained that she's in [facility] visiting her son. She lives in [place], [place]. Last night Ivette said she felt her heart was beating differently and she her watch indicated that her heart rate was elevated. Her son brought her to the ED. Today her heart went back into normal rhythm. Ivette said she will stay with her son another day or so, until after the expected snow tomorrow night, and then return to [place]. I explained my role and offered support. Xin let me know that Ivette had told her that her about a year ago. Ivette did not share that with me.
[2022-06-03] MEDS: Normal Saline Flush 10 ML SYR ×2 (18:28)
[2022-06-03] MEDS: Potassium Chloride 20 MEQ TABCR PO (21:11)
[2022-06-03] MEDS: Normal Saline Flush 10 ML SYR IVP (21:24)
[2022-06-03] MEDS: Melatonin 3 MG TAB 6 MG PO (21:24)
[2022-06-04 03:28] VITALS: BP 122/74; PULSE 54; RESP 18; TEMP 36.9; O2SAT 98
[2022-06-04 06:33] LABS: Anion Gap 7.7 mmol/L (3-11); BUN 14 mg/dL (7-18); CO2 25.3 mmol/L (21.0-32.0); Calcium 8.8 mg/dL (8.5-10.1); Chloride 112 mmol/L (98-107); Estimated GFR 57.66 (mL/min/1.73m2); Glucose 101 mg/dL (74-106); Potassium 4.2 mmol/L (3.5-5.1); Sodium 145 mmol/L (136-145)
[2022-06-04 07:00] VITALS: PULSE 60
[2022-06-04 07:07] VITALS: BP 122/75; PULSE 55; RESP 18; TEMP 36.9; O2SAT 95
[2022-06-04 08:19] VITALS: BP 119/68; PULSE 53
[2022-06-04] MEDS: Omeprazole 20 MG CAPCR PO (08:19)
[2022-06-04] MEDS: Apixaban 5 MG TAB PO (08:19)
[2022-06-04 11:07] VITALS: BP 147/73; PULSE 50; RESP 17; TEMP 36.5; O2SAT 98
--- NOTE | 2022-06-04 11:30 | DSE_ITS ---
Date of service: 06/04/22 Time of Service: 11:30 DS: Diagnosis Discharge Diagnosis (1) Atrial fibrillation with RVR: Status: Acute (2) Acute hypokalemia: Status: Acute (3) Hx of hyperlipidemia: Discharge Plan Disposition Patient Disposition: Home Condition: Improving Discharge Details Reason For Visit: Atrial Fibrilation with Rapid Ventricular Rate Admit Date/Time: 06/02/22 09:51 Admit Provider: Roque Melendrez Attending Provider: Roque Melendrez Primary Care Provider: Tova Cuello Hospital Course Hospital Course: This is a 76 yo female with a PMH of HLD who presented to the ED with a c/o a rapid heart rate.? She noted this at 3PM.? She noted the rapid rate and felt dizzy.? Her iWatch showed a HR in the 140's.? She related that this occurred coincidentally when a cat jumped onto her bed, woke and startled her.? No CP or shortness of air.? She also described N/V/diarrhea appx 4 nights ago that she relates to eating a hamburger and [place] fries at a restaurant. That has since resolved.? Caffeine intake consists of several iced tea drinks daily. No known prior arrhythmias.? EKG showed a HR of 173.? Irregular and wide complex V1 and V2.? ST depressions throughout.? Repeat EKG with improved HR of 119.? Given a dose of IV amiodarone and 2 doses of oral metoprolol 25mg in the ED. HR trending downward. Cardiology consulted appreciated.? Recommends metoprolol 25mg po Q6H.? BP was not tolerant of this dose so decreased metoprolol to 12.5mg po Q6H. She co nverted back to normal sinus rhythm. Her BP normalized and her heart rate settled into the 50's so metoprolol was not continued. Trigger may have been N/V/diarrhea and resultant hypokalemia. Eliquis for anticoagulation. She was given a 30 day script with a refill along with a a coupon for 30 days. She will need to find out from her insurance company if they will give her a vacation early refill on the Eliquis; she is leaving for a trip out of the [place] 10 days and will be there when a refill is due. Echocardiogram:? Study Quality: Fair. Technically limited study due to body habitus, inability to position patient exam done bedside supine. Conclusion Normal left ventricular wall thickness and chamber size.? Estimated ejection fraction is 55%.? Wall motion appears normal Normal right ventricular size and systolic function Both atria are mildly dilated There are no structural valvular abnormalities Trace mitral regurgitation Trace to mild tricuspid regurgitation.? Estimated right ventricular systolic pressure is 26 mmHg Patient was in atrial fibrillation with an uncontrolled ventricular response throughout, significant [id number] variation She will discuss a 30 day monitor technician with her PCP on her scheduled f/u on 06/11/22 Home Meds and New Rx's Prescriptions: New Eliquis 5 mg Tablet 5 mg PO BID Qty: 60 1RF Continued rosuvastatin [Crestor] 20 mg Tablet 20 mg 1XD omeprazole 20 mg Capsule,Delayed Release(Dr/Ec) 20 mg PO DAILY Discharge Instructions Instructions: A-fib (Atrial Fibrillation) (DC), Hypokalemia (DC), Safe Use of Anticoagulants (GEN) Stand Alone Forms: Nursing Discharge Form Referrals: Unknown,Unknown [STAFF PHYSICIAN] - (Per Patient and Dr. Melendrez, patient has an appointment on ThursdayJune 11 with PCP. ) Activity:: Activity as Tolerated Equipment/Supplies:: No Equipment Needed Diet:: Resume usual home meds Discharge Orders Discharge Orders: Discharge Order (Routine); Ordered 06/04/22 Ordered By: Roque Melendrez DS: Summary Time Spent with Patient providing and/or coordinating discharge services: Greater than 30 minutes Status at Discharge Functional status at discharge: independent ambulation Overall status at discharge: patient is back to baseline Mental Status: mental status grossly normal Speech and Movement: speech and movement normal Mood: congruent mood Affect: normal affect Exam Narrative Exam Narrative: 76 yo female that appears younger than stated age. Conversant. Lying supine. Const General: cooperative and no acute distress Orientation: alert, awake and oriented x3 HENMT Head: normal to inspection and normocephalic Face and sinus: normal facial exam Eyes General: appearance normal, both eyes and all related structures Sclera: sclerae normal Neck Neck: full ROM and no JVD Resp Effort & Inspection: normal respiratory effort and able to speak in complete sentences Auscultation: clear to auscultation bilaterally Cardio Rate: tachycardic Rhythm: abnormal rhythm irregularly irregular GI Inspection: normal to inspection Palpation: soft, rigid and nontender Auscultation: normal bowel sounds Skin General skin exam: no rashes or lesions noted Neuro General: no focal motor deficits Cranial Nerves: facial strength normal Cognition: normal cognition Speech: speech normal Extrem General: normal to inspection, no pedal edema and no calf tenderness Psych Appearance: grossly normal Mental Status: mental status grossly normal Speech and Movement: speech and movement normal Mood: congruent mood Affect: normal affect DS: Data Vitals/I&O Vitals and I&O: Vital Signs Temperature 36.5 C 06/04/22 11:07 Temperature Source Tympanic 06/04/22 11:07 Pulse 50 L 06/04/22 11:07 Pulse Rhythm Regular 06/04/22 08:20 Pulse 62 06/03/22 14:15 Respiratory Rate 17 06/04/22 11:07 Respiratory Effort Normal, Non-Labored 06/04/22 08:20 Respiratory Depth Normal 06/04/22 08:20 Respiratory Pattern Normal 06/04/22 08:20 Blood Pressure 147/73 H 06/04/22 11:07 Blood Pressure Mean 70 06/03/22 14:15 Blood Pressure Position Supine 06/02/22 15:59 Pulse Oximetry 98 06/04/22 11:07 Oxygen Delivery Method Room Air 06/04/22 11:07 Oxygen Flow Rate 0 06/04/22 11:07 Pain Level 0 06/04/22 07:07 Comment RN informed of BP 06/04/22 11:07 Intake & Output 06/03/22 06/03/22 06/04/22 11:59 23:59 11:59 Intake Total 1632.5 / 1872.5 240 / 1872.5 Output Total 200 / 500 300 / 500 270 / 270 Balance 1432.5 / 1372.5 -60 / 1372.5 -270 / -270 Weight 88.6 kg 83.1 kg Intake: IV 1082.5 / 1082.5 Oral 550 / 790 240 / 790 Output: Urine 200 / 500 300 / 500 270 / 270 Other: Urine Color Pale Pale Yellow Yellow Yellow Urine Appearance Clear Clear Clear Urine Odor Normal Comment Mixed with stool voiding independently Stool Size Small Stool Characteristics Soft Brown Voiding Methods Bedside Commode Toilet Toilet Data Completed and Pending Labs on day of discharge: Labs from last 24 hours 06/04/22 06:04 Sodium 145 Potassium 4.2 Chloride 112 H Carbon Dioxide 25.3 Anion Gap 7.7 BUN 14 Creatinine 1.0 Est GFR (CKD-EPI 2020) 57.66 Glucose 101 Calcium 8.8 PFSH All Active Problems Atrial fibrillation with RVR (Acute) Acute hypokalemia (Acute) Medical History Cervical cancer Hx of hyperlipidemia Surgical History H/O shoulder surgery History of hip replacement History of hysterectomy Social History Smoking/Tobacco Use Status: Never Smoking risk assessment performed?: Yes Alcohol Intake: never Drug use: Never Substance use type: does not use Time Spent with Patient Time Spent with Patient: 45-69 minutes Time was spent: preparing to see the patient(eg.review tests), referring, communicating with other health laboratory animal care veterinarian, indepentently interpreting results, counseling the patient and care coordination
--- NOTE | 2022-06-04 11:35 | CMDISCH_ITS ---
- If Service Date Differs Date of service: 06/04/22 Time of Service: 11:35 LACE Index Scoring Tool - Questions: Length of Stay (in days): 2 Acuity (Admit via E.D.?): Yes E.D. Visits: 1 - Answers: Total Score: 6 Risk of Readmission: Low Risk Care Management Discharge Reason for Hospitalization: Atrial fibrillation with RVR Discharge Plan: Ivette is discharging locally to her son's home. She will follow up with her community providers and discharge plan of care as prescribed. She is driven via private vehicle with family and will drive herself to her home in [place] in the next couple of days. RX for Eliquis is sent to [facility] in [place] and covered $0, for 30 days with Eliquis coupon. Patient/Family Education Needs: Review discharge instructions, limitions, medications and plan to follow up with community providers. Discuss ask me three.
[2022-06-04 11:48] VITALS: PULSE 57
== END 2022-06-04 12:24 | disposition home or self-care (01) | DRG 310 ==
LOC: ER 08:37 → ICU 11:57 → MS 06-03 17:48
PROVIDERS: Physician Assistant; Admitting Provider Family Medicine; Emergency Provider Student in an Organized Health Care Education/Training Program; PCP Internal Medicine; Visit Provider Family Medicine
DX: I48.91 Unspecified atrial fibrillation (principal); E87.6 Hypokalemia; E78.5 Hyperlipidemia, unspecified; I45.10 Unspecified right bundle-branch block; Z85.41 Personal history of malignant neoplasm of cervix uteri
CPT/HCPCS: 36415; 80048; 80053; 87635; 93005; 93306; 96361; 96374; 99223; 99285; 71045; 83735; 84484; 85025; 93010; 99222; 99239; J3490